=== PATIENT | male | born 1975 | race American Indian/Alaskan Native ===

== ENCOUNTER 2019-04-17 09:13 | Inpatient (IN) | payer MEDICAID ==
[2019-04-17 09:40] LABS: Basophils % (Auto) 0.3 % (0.0-1.8); Eosinophils % (Auto) 0.1 % (0.0-4.3); Hematocrit 42.2 % (35.5-45.6); Hemoglobin 14.2 gm/dl (11.8-15.2); Lymphocytes # (Auto) 0.7 K/mm3 (1.2-5.4); Lymphocytes % (Auto) 7.5 % (13.4-35.0); Mean Corpuscular HGB Conc 34 % (32-34); Mean Corpuscular Volume 88 fl (84-94); Monocytes # (Auto) 0.3 K/mm3 (0.0-0.8); Monocytes % (Auto) 3.3 % (0.0-7.3); Platelet Count 290 K/mm3 (140-440); Red Blood Count 4.82 M/mm3 (3.65-5.03); Red Cell Distribution Width 14.5 % (13.2-15.2)
[2019-04-17] MEDS ORDERED: ZOFRAN IV ONE (09:52)
[2019-04-17] MEDS ORDERED: NACL 0.9% 1000 ML 1,000 ML IV ONE ×2 (09:52→11:38)
[2019-04-17] MEDS ORDERED: MORPHINE IV ONE (09:52)
--- NOTE | 2019-04-17 09:53 | Emergency Department Report ---
ED Abdominal Pain HPI - General Chief Complaint: Abdominal Pain Stated Complaint: STOMACH PAIN Time Seen by Provider: 04/17/19 09:41 Source: patient, RN notes reviewed Mode of arrival: Ambulatory Limitations: No Limitations - History of Present Illness Initial Comments: This is a 43-year-old gentleman, not known to this provider previously. The patient does not recall the name of his primary care doctor. He states he has a history of psoriasis. He denies a history of abdominal surgeries. The patient presents to ER today with a complaint of nontraumatic supraumbilical and epigastric pain, which started last night. The pain is sharp and aching, diffuse, increases with palpation and decreases with rest. There is positive nausea, vomiting. There are no urinary symptoms. There is no testicular pain. No recent alcohol binge, excessive Tylenol use, or recreational mushroom consumption. Patient does report remote history of cold/URI symptoms approximately 10-14 days ago. MD Complaint: abdominal pain -: Gradual, hour(s) Location: diffuse, periumbilical Quality: cramping Consistency: constant Improves With: rest Worsens With: movement Associated Symptoms: nausea, vomiting, anorexia - Related Data Allergies Allergy/AdvReac Type Severity Reaction Status Date / Time No Known Allergies Allergy Verified 04/17/19 11:45 ED Review of Systems ROS: Stated complaint: STOMACH PAIN Other details as noted in HPI Constitutional: malaise. denies: fever Eyes: denies: eye discharge ENT: denies: epistaxis Respiratory: denies: cough Cardiovascular: denies: chest pain Gastrointestinal: abdominal pain, nausea, vomiting. denies: diarrhea, constipation, hematemesis, melena, hematochezia Genitourinary: denies: urgency, dysuria, testicular pain Musculoskeletal: denies: back pain Skin: rash (chronic psoriatic rash) Neurological: weakness Hematological/Lymphatic: denies: easy bleeding ED Past Medical Hx - Past Medical History Previous Medical History?: Yes Additional medical history: psoriasis - Surgical History Past Surgical History?: No - Social History Smoking Status: Never Smoker Substance Use Type: None ED Physical Exam - General Limitations: No Limitations General appearance: alert, anxious, in distress, obese - Head Head exam: Present: atraumatic, normocephalic - Eye Eye exam: Present: normal appearance, EOMI. Absent: nystagmus - ENT ENT exam: Present: normal exam, normal orophraynx, mucous membranes moist, normal external ear exam - Neck Neck exam: Present: normal inspection, full ROM. Absent: tenderness, meningismus - Respiratory Respiratory exam: Present: normal lung sounds bilaterally. Absent: respiratory distress - Cardiovascular Cardiovascular Exam: Present: regular rate, normal rhythm, normal heart sounds. Absent: bradycardia, tachycardia, irregular rhythm, systolic murmur, diastolic murmur, rubs, gallop - GI/Abdominal GI/Abdominal exam: Present: soft, tenderness, guarding (voluntary guarding). Absent: distended, rebound, rigid, pulsatile mass - Rectal Rectal exam: Present: deferred - exam: Present: normal inspection, other (there is no testicular tenderness. There is normal testicular lie bilaterally. There is normal cremasteric reflex bilaterally.). Absent: testicular tenderness, scrotal swelling External exam: Present: normal external exam, other (chaperoned by nurse Emma Kenney). Absent: erythema, swelling, lesions, lacerations, ecchymosis - Extremities Exam Extremities exam: Present: normal inspection, full ROM, other (2+ pulses noted in the bilateral upper, lower extremities. Compartments soft. No long bony tenderness. The pelvis is stable.). Absent: pedal edema, joint swelling, calf tenderness - Back Exam Back exam: Present: normal inspection, full ROM. Absent: tenderness, CVA tenderness (R), CVA tenderness (L), paraspinal tenderness, vertebral tenderness - Neurological Exam Neurological exam: Present: alert, normal gait, other (Extraocular movements intact. Tongue midline. No facial droop. Facial sensation intact to light t ouch in the V1, V2, V3 distribution bilaterally. 5 and 5 strength in 4 extremities.. Sensation is intact to light touch in 4 extremities.). Absent: motor sensory deficit - Psychiatric Psychiatric exam: Present: anxious - Skin Skin exam: Present: warm, other (multiple psoriatic lesions noted) ED Course Vital Signs 04/17/19 04/17/19 04/17/19 09:16 10:01 10:31 Temperature 97.6 F Pulse Rate 82 79 84 Respiratory 20 16 26 H Rate Blood Pressure 149/92 140/98 140/79 O2 Sat by Pulse 99 97 93 Oximetry 04/17/19 04/17/19 11:01 11:31 Temperature Pulse Rate 85 82 Respiratory 20 25 H Rate Blood Pressure 140/98 145/91 O2 Sat by Pulse 92 95 Oximetry - Reevaluation(s) Reevaluation #1: 04/17/19 10:38 Differential diagnosis, including not limited to: Pancreatitis, renal colic, cholecystitis, appendicitis Assessment and plan: 43-year-old gentleman, appears uncomfortable, with diffuse abdominal tenderness, laboratory studies show elevated lipase and transaminitis, suspect pancreatitis. CT scan has been performed, to me, it appears that the pancreas is inflamed. Right upper quadrant ultrasound ordered. Formal CT scan interpretation pending. I discussed these findings with patient, we have advised admission to the hospital for further management. Patient denies consumption of alcohol, and acetaminophen and recreational mushrooms. He does endorse recent cold/URI, suspect viral pancreatitis at this time if CT scan does not demonstrate alternative pathology. Reevaluation #2: 04/17/19 11:26 Dr Stoddard accepts to the medical service Reevaluation #3: 04/17/19 11:39 d/w gastroenterology on-call Dr Valle. We agree that patient does not require antibiotic therapy at this time. She recommends MRCP, which I will defer to the inpatient team to order, fluids, supportive care, and trending labs. Her group will follow in consultation. ED Medical Decision Making - Lab Data Result diagrams: 04/17/19 09:21 04/17/19 09:21 Vital Signs 04/17/19 04/17/19 09:16 10:01 Temperature 97.6 F Pulse Rate 82 79 Respiratory 20 16 Rate Blood Pressure 149/92 140/98 O2 Sat by Pulse 99 97 Oximetry Lab Results 04/17/19 04/17/19 04/17/19 Range/Units 09:19 09:21 09:21 WBC 9.7 (4.5-11.0) K/mm3 RBC 4.82 (3.65-5.03) M/mm3 Hgb 14.2 (11.8-15.2) gm/dl Hct 42.2 (35.5-45.6) % MCV 88 (84-94) fl MCH 30 (28-32) pg MCHC 34 (32-34) % RDW 14.5 (13.2-15.2) % Plt Count 290 (140-440) K/mm3 Lymph % (Auto) 7.5 L (13.4-35.0) % [place] % (Auto) 3.3 (0.0-7.3) % Eos % (Auto) 0.1 (0.0-4.3) % Baso % (Auto) 0.3 (0.0-1.8) % Lymph # 0.7 L (1.2-5.4) K/mm3 [place] # 0.3 (0.0-0.8) K/mm3 Eos # 0.0 (0.0-0.4) K/mm3 Baso # 0.0 (0.0-0.1) K/mm3 Seg Neutrophils % 88.8 H (40.0-70.0) % Seg Neutrophils # 8.6 H (1.8-7.7) K/mm3 Sodium 138 (137-145) mmol/L Potassium 4.0 (3.6-5.0) mmol/L Chloride 99.7 (98-107) mmol/L Carbon Dioxide 26 (22-30) mmol/L Anion Gap 16 mmol/L BUN 10 (9-20) mg/dL Creatinine 1.2 (0.8-1.5) mg/dL Estimated GFR > 60 ml/min BUN/Creatinine Ratio 8 % Glucose 200 H (75-100) mg/dL Calcium 9.2 (8.4-10.2) mg/dL Magnesium 2.00 (1.7-2.3) mg/dL Total Bilirubin 1.70 H (0.1-1.2) mg/dL AST 278 H (5-40) units/L ALT 321 H (7-56) units/L Alkaline Phosphatase 85 (35-129) units/L Total Creatine Kinase 856 H (55-170) units/L Total Protein 7.7 (6.3-8.2) g/dL Albumin 4.3 (3.9-5) g/dL Albumin/Globulin Ratio 1.3 % Lipase 672 H (13-60) units/L Urine Color (Yellow) Urine Turbidity (Clear) Urine pH (5.0-7.0) Ur Specific [place] (1.003-1.030) Urine Protein (Negative) mg/dL Urine Glucose (UA) (Negative) mg/dL Urine Ketones (Negative) mg/dL Urine Blood (Negative) Urine Nitrite (Negative) Urine Bilirubin (Negative) Urine Urobilinogen (<2.0) mg/dL Ur Leukocyte Esterase (Negative) Urine WBC (Auto) (0.0-6.0) /HPF Urine RBC (Auto) (0.0-6.0) /HPF U Epithel Cells (Auto) (0-13.0) /HPF Urine Mucus /HPF Urine Opiates Screen Urine Methadone Screen Ur Barbiturates Screen Ur Phencyclidine Scrn Ur Amphetamines Screen U Benzodiazepines Scrn Urine Cocaine Screen U Marijuana (THC) Screen 04/17/19 04/17/19 Range/Units 10:04 10:04 WBC (4.5-11.0) K/mm3 RBC (3.65-5.03) M/mm3 Hgb (11.8-15.2) gm/dl Hct (35.5-45.6) % MCV (84-94) fl MCH (28-32) pg MCHC (32-34) % RDW (13.2-15.2) % Plt Count (140-440) K/mm3 Lymph % (Auto) (13.4-35.0) % [place] % (Auto) (0.0-7.3) % Eos % (Auto) (0.0-4.3) % Baso % (Auto) (0.0-1.8) % Lymph # (1.2-5.4) K/mm3 [place] # (0.0-0.8) K/mm3 Eos # (0.0-0.4) K/mm3 Baso # (0.0-0.1) K/mm3 Seg Neutrophils % (40.0-70.0) % Seg Neutrophils # (1.8-7.7) K/mm3 Sodium (137-145) mmol/L Potassium (3.6-5.0) mmol/L Chloride (98-107) mmol/L Carbon Dioxide (22-30) mmol/L Anion Gap mmol/L BUN (9-20) mg/dL Creatinine (0.8-1.5) mg/dL Estimated GFR ml/min BUN/Creatinine Ratio % Glucose (75-100) mg/dL Calcium (8.4-10.2) mg/dL Magnesium (1.7-2.3) mg/dL Total Bilirubin (0.1-1.2) mg/dL AST (5-40) units/L ALT (7-56) units/L Alkaline Phosphatase (35-129) units/L Total Creatine Kinase (55-170) units/L Total Protein (6.3-8.2) g/dL Albumin (3.9-5) g/dL Albumin/Globulin Ratio % Lipase (13-60) units/L Urine Color [place] (Yellow) Urine Turbidity Clear (Clear) Urine pH 7.0 (5.0-7.0) Ur Specific [place] 1.022 (1.003-1.030) Urine Protein <15 mg/dl (Negative) mg/dL Urine Glucose (UA) >=500 (Negative) mg/dL Urine Ketones Neg (Negative) mg/dL Urine Blood Neg (Negative) Urine Nitrite Neg (Negative) Urine Bilirubin Neg (Negative) Urine Urobilinogen 4.0 (<2.0) mg/dL Ur Leukocyte Esterase Neg (Negative) Urine WBC (Auto) < 1.0 (0.0-6.0) /HPF Urine RBC (Auto) 3.0 (0.0-6.0) /HPF U Epithel Cells (Auto) < 1.0 (0-13.0) /HPF Urine Mucus Few /HPF Urine Opiates Screen Presumptive negative Urine Methadone Screen Presumptive negative Ur Barbiturates Screen Presumptive negative Ur Phencyclidine Scrn Presumptive negative Ur Amphetamines Screen Presumptive negative U Benzodiazepines Scrn Presumptive negative Urine Cocaine Screen Presumptive negative U Marijuana (THC) Screen Presumptive negative - EKG Data 04/17/19 10:39 there is no prior EKG available for comparison. This is a normal sinus rhythm, 85 bpm, left axis deviation, left anterior fascicular block, high left ventricular voltage, incomplete right bundle branch block, nonspecific atrial findings, not consistent with ST elevation myocardial infarction. - Radiology Data Radiology results: pending, report reviewed, image reviewed Print Report Referring Physician: OFELIA CHIANG Patient Name: SAMMY DOMINGUEZ Date of : 1975 Sex: Male Report Date: 2019-04-17 Report Status: Finalized Findings [facility] [address] [place] [address] Cat Scan Report Signed Patient: SAMMY DOMINGUEZ MR#: [id number] 1 : 1975 Acct:[id number] Age/Sex: 43 / M ADM Date: 04/17/19 Loc: ED Attending Dr: Ordering Physician: OFELIA CHIANG MD Date of Service: 04/17/19 Procedure(s): CT abdomen pelvis wo/w con Accession Number(s): [id number] cc: OFELIA CHIANG MD CT abdomen pelvis wo/w con INDICATION / CLINICAL INFORMATION: abd pain n/v. TECHNIQUE: All CT scans at this location are performed using CT dose reduction for ALARA by means of automated exposure control. COMPARISON: None available. FINDINGS: Precontrast images do not demonstrate evidence for urinary tract stones. No significant atherosclerotic changes present. Following the administration of intravenous contrast, minimal fluid is seen in the abdomen. Marked diffuse peripancreatic inflammation is present. Diffuse fatty infiltration is present in the liver without focal abnormality. The spleen, k idneys, adrenal glands and great vessels are normal. A small umbilical hernia is present containing only fat In the pelvis, no free fluid is seen. No enlarged lymph nodes are identified. The bladder and the appendix are normal. No significant skeletal abnormality is seen. IMPRESSION: 1. Marked peripancreatic inflammation consistent with acute pancreatitis. 2. Diffuse fatty infiltration in the liver without focal abnormality 3. Small umbilical hernia containing only fat Signer Name: Rustam Wright MD FACR Signed: 04/17/2019 10:53 AM Workstation Name: [id number] Transcribed By: MS Dictated By: Rustam Wright MD Electronically Authenticated By: Rustam Wright MD Signed Date/Time: 1053 [facility] [address] [place] [address] Ultrasound Report Signed Patient: SAMMY DOMINGUEZ MR#: [id number] 1 : 1975 Acct:[id number] Age/Sex: 43 / M ADM Date: 04/17/19 Loc: ED Attending Dr: Ordering Physician: OFELIA CHIANG MD Date of Service: 04/17/19 Procedure(s): US abdomen limited Accession Number(s): [id number] cc: OFELIA CHIANG MD US ABDOMEN LIMITED INDICATION / CLINICAL INFORMATION: abd pain pancreatitis transaminitis. COMPARISON: None available. FINDINGS: Multiple gallstones are seen in the gallbladder. The gallbladder wall is not thickened. Common bile duct is normal measuring 2 mm. Visualized portions of the right kidney and aorta are normal. The pancreas was not well visualized. IMPRESSION: Cholelithiasis without gallbladder wall thickening. No definite common bile duct stone is seen on this exam. The pancreas was not well visualized. Signer Name: Rustam Wright MD FACR Signed: 04/17/2019 11:45 AM Workstation Name: [id number] Transcribed By: MS Dictated By: Rustam Wright MD Electronically Authenticated By: Rustam Wright MD Signed Date/Time: 04/17/19 1145 Critical care attestation.: If time is entered above; I have spent that time in minutes in the direct care of this critically ill patient, excluding procedure time. ED Disposition Clinical Impression: Pancreatitis, Transaminitis Disposition: [id number] OP ADMIT IP TO THIS HOSP Is pt being admited?: Yes Condition: Good
[2019-04-17 09:54] LABS: Alanine Aminotransferase 321 units/L (7-56); Albumin 4.3 g/dL (3.9-5); BUN/Creatinine Ratio 8; Blood Urea Nitrogen 10 mg/dL (9-20); Calcium 9.2 mg/dL (8.4-10.2); Hemolysis Index 2
[2019-04-17 10:21] LABS: Bilirubin,Urine NEG (Negative); Blood,Urine NEG (Negative); Color,Urine Amber (Yellow); Mucus,Urine FEW /HPF; Protein,Urine <15 mg/dL mg/dL (Negative)
[2019-04-17 10:24] LABS: WBC,Urine < 1.0 /HPF (0.0-6.0)
[2019-04-17] MEDS ORDERED: DILAUDID IV ONE (10:28)
[2019-04-17 10:37] LABS: Amphetamine Screen,Urine PRESUMPTIVE NEGATIVE; Benzodiazepines Screen,Urine PRESUMPTIVE NEGATIVE; Cannabinoid Screen,Urine PRESUMPTIVE NEGATIVE; Cocaine Screen,Urine PRESUMPTIVE NEGATIVE; Methadone Screen,Urine PRESUMPTIVE NEGATIVE; Opiate Screen,Urine PRESUMPTIVE NEGATIVE
--- NOTE | 2019-04-17 10:57 | Cat Scan Report ---
CT abdomen pelvis wo/w con INDICATION / CLINICAL INFORMATION: abd pain n/v. TECHNIQUE: All CT scans at this location are performed using CT dose reduction for ALARA by means of automated e xposure control. COMPARISON: None available. FINDINGS: Precontrast images do not demonstrate evidence for urinary tract stones. No significant atherosclerot ic changes present. Following the administration of intravenous contrast, minimal fluid is seen in the abdomen. Marked di ffuse peripancreatic inflammation is present. Diffuse fatty infiltration is present in the liver with out focal abnormality. The spleen, kidneys, adrenal glands and great vessels are normal. A small umbi lical hernia is present containing only fat In the pelvis, no free fluid is seen. No enlarged lymph nodes are identified. The bladder and the mira endix are normal. No significant skeletal abnormality is seen. IMPRESSION: 1. Marked peripancreatic inflammation consistent with acute pancreatitis. 2. Diffuse fatty infiltration in the liver without focal abnormality 3. Small umbilical hernia containing only fat Signer Name: Rustam Wright MD FACR Signed: 04/17/2019 10:53 AM Workstation Name: [id number]
[2019-04-17] MEDS ORDERED: PROVENTIL IH PRN (11:41)
[2019-04-17] MEDS ORDERED: ZOFRAN IV PRN (11:41)
[2019-04-17] MEDS ORDERED: TYLENOL PO PRN (11:41)
[2019-04-17] MEDS ORDERED: SODIUM CHLORIDE FLUSH SYRINGE 10 ML IV PRN (11:41)
--- NOTE | 2019-04-17 11:43 | History and Physical Report ---
History of Present Illness Chief complaint: My stomach is killing me doc History of present illness: 43 YO Male with Obesity, Psoriasis currently on Enbrel presents to ED for evaluation. Pt states that he has experienced pain in his abdomen over the past 2 days with progressively worsening symptoms over the past 12 hours. Pt states that his abdominal pain is 10/10, sharp, diffuse, nonradiating, associated with nausea. Pt acknowledges multiple episodes of vomiting, and inability to tolerate fluids or solids by mouth. Pt transported to [facility] via private vehicle. Pt seen and evaluated in ED and found to have Acute Pancreatitis, SIRS, Elevated Liver function tests. Pt admitted to medical floor, and treated with IVF resuscitation therapy and anti emetic therapy as well as bowel rest. GI consulted in ED. Pt denies fever, chills, CP, Palpitations, Trauma, BRBPR, Productive cough, ingestion of food/water from new or different sources. No prior admission for review. No medication listed at time of admission for reconciliation. Past History Past Medical History: other (Obesity, Psoriasis) Past Surgical History: No surgical history, Other (reviewed) Social history: single. denies: smoking, alcohol abuse, prescription drug abuse Family history: no significant family history (reviewed) Medications and Allergies Allergies Allergy/AdvReac Type Severity Reaction Status Date / Time No Known Allergies Allergy Verified 04/17/19 11:45 Active Meds: Active Medications Sodium Chloride (Nacl 0.9% 1000 Ml) 1,000 mls @ 999 mls/hr IV BOLUS ONE Stop: 04/17/19 12:38 Review of Systems Constitutional: no weight loss, no weight gain, no fever, no chills, no sweats Ears, nose, mouth and throat: no ear pain, no ear discharge, no tinnitis, no decreased hearing, no nose pain, no nasal congestion Cardiovascular: no chest pain, no orthopnea, no palpitations, no edema, no syncope Respiratory: no cough, no cough with sputum, no excessive sputum, no hemoptysis, no shortness of breath Gastrointestinal: abdominal pain, nausea, vomiting, loss of appetite, no diarrhea, no constipation, no hematemesis, no coffee ground emesis, no BRBPR Genitourinary Male: no dysuria, no hematuria, no flank pain, no discharge, no urinary frequency, no urinary hesitancy Rectal: no pain, no incontinence, no bleeding Musculoskeletal: no neck stiffness, no neck pain, no arm numbness/tingling, no shooting leg pain, no leg numbness/tingling Integumentary: no rash, no pruritis, no redness, no sores, no wounds, no jaundice Neurological: no head injury, no transient paralysis, no paralysis, no weakness, no numbness, no tingling Psychiatric: no anxiety, no memory loss, no insomnia, no suicidal ideation Endocrine: no cold intolerance, no heat intolerance, no polyphagia, no excessive thirst, no polydipsia, no polyuria, no nocturia Hematologic/Lymphatic: no easy bruising, no easy bleeding, no lymphadenopathy, no lymphedema Allergic/Immunologic: no urticaria, no allergic rhinitis, no persistent infections, no anaphylaxis, no angioedema Exam - Constitutional Vitals: Temp Pulse Resp BP Pulse Ox 97.6 F 85 20 140/98 92 04/17/19 09:16 04/17/19 11:01 04/17/19 11:01 04/17/19 11:01 04/17/19 11:01 General appearance: Present: mild distress, obese - EENT Eyes: Present: PERRL, miosis ENT: hearing intact, clear oral mucosa - Neck Neck: Present: supple, normal ROM - Respiratory Respiratory effort: normal Respiratory: bilateral: CTA - Cardiovascular Heart Sounds: Present: S1 & S2. Absent: rub, click - Extremities Extremities: pulses symmetrical, No edema Peripheral Pulses: within normal limits - Abdominal General gastrointestinal: Present: soft, tender, non-distended, normal bowel sounds, other (Negative Das-Matias sign, Negative [place] Sign.). Absent: hepatomegaly, splenomegaly, mass, hernia Localized gastrointestinal: tender: diffuse Male genitourinary: Present: normal - Integumentary Integumentary: Present: clear, warm, dry - Musculoskeletal Musculoskeletal: gait normal, strength equal bilaterally - Psychiatric Psychiatric: appropriate mood/affect, intact judgment & insight - Neurologic Neurologic: CNII-XII intact, moves all extremities Results - Labs CBC & Chem 7: 04/17/19 09:21 04/17/19 09:21 Labs: Abnormal lab results 04/17/19 04/17/19 04/17/19 Range/Units 09:19 09:21 09:21 Lymph % (Auto) 7.5 L (13.4-35.0) % Lymph # 0.7 L (1.2-5.4) K/mm3 Seg Neutrophils % 88.8 H (40.0-70.0) % Seg Neutrophils # 8.6 H (1.8-7.7) K/mm3 Glucose 200 H (75-100) mg/dL Total Bilirubin 1.70 H (0.1-1.2) mg/dL AST 278 H (5-40) units/L ALT 321 H (7-56) units/L Total Creatine Kinase 856 H (55-170) units/L Lipase 672 H (13-60) units/L Assessment and Plan - Patient Problems (1) Acute pancreatitis Current Visit: Yes Status: Acute Plan to address problem: Admit to Med/surg floor, IVF resuscitation therapy, bowel rest, pain control, CT Abdomen/pelvis, Ultrasound Abdomen, [place] Score: 2 at admission, serial abdominal exam, LDH, Lipid panel, lactic acid level, Lipase in AM. (2) SIRS (systemic inflammatory response syndrome) Current Visit: Yes Status: Acute Plan to address problem: IVF resuscitation therapy, supportive care, repeat bmp in am. (3) Intractable nausea and vomiting Current Visit: Yes Status: Acute Qualifiers: Vomiting type: unspecified Qualified Code(s): R11.2 - Nausea with vomiting, unspecified Plan to address problem: bowel rest, anti emetic therapy, IVF resuscitation therapy (4) Volume depletion Current Visit: Yes Status: Acute Plan to address problem: IVF resuscitation therapy, monitor uop q shift, (5) Psoriasis Current Visit: Yes Status: Acute Plan to address problem: Hold Enbrel for now. Unclear if drug induced pancreatitis. supportive care, topical steroid therapy. (6) Obesity (BMI 30.0-34.9) Current Visit: Yes Status: Acute Plan to address problem: balanced diet, increased physical activity at discharge. (7) DVT prophylaxis Current Visit: Yes Status: Acute Plan to address problem: SCD to BLE while in bed, Pt is ambulatory.
--- NOTE | 2019-04-17 11:49 | Ultrasound Report ---
US ABDOMEN LIMITED INDICATION / CLINICAL INFORMATION: abd pain pancreatitis transaminitis. COMPARISON: None available. FINDINGS: Multiple gallstones are seen in the gallbladder. The gallbladder wall is not thickened. Common bile d uct is normal measuring 2 mm. Visualized portions of the right kidney and aorta are normal. The pancr eas was not well visualized. IMPRESSION: Cholelithiasis without gallbladder wall thickening. No definite common bile duct stone is seen on thi s exam. The pancreas was not well visualized. Signer Name: Rustam Wright MD FACR Signed: 04/17/2019 11:45 AM Workstation Name: [id number]
[2019-04-17] MEDS: DILAUDID IV PRN ×5 (11:50→23:38)
[2019-04-17] MEDS ORDERED: HYTONE CR TP PRN (12:44)
[2019-04-17 14:29] LABS: Chol/HDL Ratio 2.55 %
--- NOTE | 2019-04-17 19:22 | Gastroenterology Consultation ---
History of Present Illness - Reason for Consult Consult date: 04/17/19 pancreatitis Requesting physician: OFELIA CHIANG - History of Present Illness This is 43 yo male with pmh of psoriasis (skin involvement) on Enbrel admitted for 2 day h/o epigastric pain and nausea/vomiting found to have pancreatitis. Patient reports epigastric pain severe sharp in nature for the past 2 days along with nausea and NBNB emesis. No radiation of the pain. No blood in the stool or melena. No prior h/o pancreatitis. Change in medication. No alcohol use. Lipase elevated in 600s. CT showing signs of gallstone and pancreatitis. Medication list reviewed Past History Past Medical History: other (Obesity, Psoriasis) Past Surgical History: No surgical history, Other (reviewed) Social history: single. denies: smoking, alcohol abuse, prescription drug abuse Family history: no significant family history (reviewed) Medications and Allergies Allergies Allergy/AdvReac Type Severity Reaction Status Date / Time No Known Allergies Allergy Verified 04/17/19 11:45 Home Medications Medication Instructions Recorded Confirmed Last Taken Type No Known Home Medications [No 04/17/19 04/17/19 Unknown History Reported Home Medications] Active Meds: Active Medications Acetaminophen (Tylenol) 650 mg PO Q4H PRN PRN Reason: Pain MILD(1-3)/Fever >100.5/QUNA Albuterol (Proventil) 2.5 mg IH Q4HRT PRN PRN Reason: Shortness Of Breath Hydrocortisone Acetate (Hytone Cr) 1 applic TP Q12H PRN PRN Reason: Skin Irritation Hydromorphone HCl (Dilaudid) 0.25 mg IV Q3H PRN PRN Reason: Pain, Moderate (4-6) Last Admin: 04/17/19 17:01 Dose: 0.25 mg Documented by: Sodium Chloride (Nacl 0.9% 1000 Ml) 1,000 mls @ 150 mls/hr IV DIRECT PAUL Ondansetron HCl (Zofran) 4 mg IV Q8H PRN PRN Reason: Nausea And Vomiting Sodium Chloride (Sodium Chloride Flush Syringe 10 Ml) 10 ml IV BID PAUL Sodium Chloride (Sodium Chloride Flush Syringe 10 Ml) 10 ml IV PRN PRN PRN Reason: LINE FLUSH Review of Systems - Review of Systems All systems: negative Constitutional: no weight loss, no weight gain Cardiovascular: no chest pain Respiratory: no cough Gastrointestinal: abdominal pain, nausea, vomiting, no BRBPR, no melena Integumentary: rash Neurological: no sensory deficit Exam - Constitutional Vital Signs: Temp Pulse Resp BP Pulse Ox 98.0 F 89 18 147/92 99 04/17/19 17:32 04/17/19 17:32 04/17/19 17:32 04/17/19 17:32 04/17/19 17:32 General appearance: no acute distress - EENT Eyes: EOM intact ENT: hearing intact - Neck Neck: supple - Respiratory Respiratory effort: normal Respiratory: bilateral: CTA - Cardiovascular Rhythm: regular Heart Sounds: Present: S1 & S2 - Gastrointestinal General gastrointestinal: Present: soft, tender, non-distended, normal bowel sounds - Integumentary Integumentary: Present: rash - Neurologic Neurological: alert and oriented x3 - Labs CBC & Chem 7: 04/17/19 09:21 04/17/19 09:21 Lab Results: Laboratory Results - last 24 hr 04/17/19 04/17/19 04/17/19 09:19 09:21 09:21 WBC 9.7 RBC 4.82 Hgb 14.2 Hct 42.2 MCV 88 MCH 30 MCHC 34 RDW 14.5 Plt Count 290 Lymph % (Auto) 7.5 L [place] % (Auto) 3.3 Eos % (Auto) 0.1 Baso % (Auto) 0.3 Lymph # 0.7 L [place] # 0.3 Eos # 0.0 Baso # 0.0 Seg Neutrophils % 88.8 H Seg Neutrophils # 8.6 H Sodium 138 Potassium 4.0 Chloride 99.7 Carbon Dioxide 26 Anion Gap 16 BUN 10 Creatinine 1.2 Estimated GFR > 60 BUN/Creatinine Ratio 8 Glucose 200 H Lactic Acid Calcium 9.2 Magnesium 2.00 Total Bilirubin 1.70 H AST 278 H ALT 321 H Alkaline Phosphatase 85 Lactate Dehydrogenase Total Creatine Kinase 856 H Total Protein 7.7 Albumin 4.3 Albumin/Globulin Ratio 1.3 Triglycerides Cholesterol LDL Cholesterol Direct HDL Cholesterol Cholesterol/HDL Ratio Lipase 672 H Urine Color Urine Turbidity Urine pH Ur Specific [place] Urine Protein Urine Glucose (UA) Urine Ketones Urine Blood Urine Nitrite Urine Bilirubin Urine Urobilinogen Ur Leukocyte Esterase Urine WBC (Auto) Urine RBC (Auto) U Epithel Cells (Auto) Urine Mucus Urine Opiates Screen Urine Methadone Screen Ur Barbiturates Screen Ur Phencyclidine Scrn Ur Amphetamines Screen U Benzodiazepines Scrn Urine Cocaine Screen U Marijuana (THC) Screen Drugs of Abuse Note 04/17/19 04/17/19 04/17/19 10:04 10:04 12:47 WBC RBC Hgb Hct MCV MCH MCHC RDW Plt Count Lymph % (Auto) [place] % (Auto) Eos % (Auto) Baso % (Auto) Lymph # [place] # Eos # Baso # Seg Neutrophils % Seg Neutrophils # Sodium Potassium Chloride Carbon Dioxide Anion Gap BUN Creatinine Estimated GFR BUN/Creatinine Ratio Glucose Lactic Acid Calcium Magnesium Total Bilirubin AST ALT Alkaline Phosphatase Lactate Dehydrogenase 480 H Total Creatine Kinase Total Protein Albumin Albumin/Globulin Ratio Triglycerides Cholesterol LDL Cholesterol Direct HDL Cholesterol Cholesterol/HDL Ratio Lipase Urine Color [place] Urine Turbidity Clear Urine pH 7.0 Ur Specific [place] 1.022 Urine Protein <15 mg/dl Urine Glucose (UA) >=500 Urine Ketones Neg Urine Blood Neg Urine Nitrite Neg Urine Bilirubin Neg Urine Urobilinogen 4.0 Ur Leukocyte Esterase Neg Urine WBC (Auto) < 1.0 Urine RBC (Auto) 3.0 U Epithel Cells (Auto) < 1.0 Urine Mucus Few Urine Opiates Screen Presumptive negative Urine Methadone Screen Presumptive negative Ur Barbiturates Screen Presumptive negative Ur Phencyclidine Scrn Presumptive negative Ur Amphetamines Screen Presumptive negative U Benzodiazepines Scrn Presumptive negative Urine Cocaine Screen Presumptive negative U Marijuana (THC) Screen Presumptive negative Drugs of Abuse Note Disclamer 04/17/19 04/17/19 12:47 12:47 WBC RBC Hgb Hct MCV MCH MCHC RDW Plt Count Lymph % (Auto) [place] % (Auto) Eos % (Auto) Baso % (Auto) Lymph # [place] # Eos # Baso # Seg Neutrophils % Seg Neutrophils # Sodium Potassium Chloride Carbon Dioxide Anion Gap BUN Creatinine Estimated GFR BUN/Creatinine Ratio Glucose Lactic Acid 2.70 H* Calcium Magnesium Total Bilirubin AST ALT Alkaline Phosphatase Lactate Dehydrogenase Total Creatine Kinase Total Protein Albumin Albumin/Globulin Ratio Triglycerides 51 Cholesterol 151 LDL Cholesterol Direct 95 HDL Cholesterol 59 Cholesterol/HDL Ratio 2.55 Lipase Urine Color Urine Turbidity Urine pH Ur Specific [place] Urine Protein Urine Glucose (UA) Urine Ketones Urine Blood Urine Nitrite Urine Bilirubin Urine Urobilinogen Ur Leukocyte Esterase Urine WBC (Auto) Urine RBC (Auto) U Epithel Cells (Auto) Urine Mucus Urine Opiates Screen Urine Methadone Screen Ur Barbiturates Screen Ur Phencyclidine Scrn Ur Amphetamines Screen U Benzodiazepines Scrn Urine Cocaine Screen U Marijuana (THC) Screen Drugs of Abuse Note Assessment and Plan # Acute pancreatitis - likely 2/2 gallstone pancreatitis - US and CT showing gallstones in the gallbladder without clear sign of CBD stone or dilation. - mild elevation of bilirubin. - others on ddx for etiology including autoimmune pancreatitis vs drug induced although Enbrel not classic medication known for pancreatitis complications. Rec: - NPO - aggressive IVF - pain control. - monitor CMP - check MRCP to rule out CBD stone. - recommend surgery consult. - Patient Problems (1) Acute pancreatitis Current Visit: Yes Status: Acute
[2019-04-17] MEDS: NACL 0.9% 1000 ML 1,000 ML IV SCH (20:08)
[2019-04-17] MEDS: SODIUM CHLORIDE FLUSH SYRINGE 10 ML IV SCH (21:34)
[2019-04-18] MEDS: NACL 0.9% 1000 ML 1,000 ML IV SCH (01:25)
[2019-04-18] MEDS: DILAUDID IV PRN ×6 (02:44→19:08)
[2019-04-18 04:30] LABS: Basophils % (Auto) 0.3 % (0.0-1.8); Eosinophils % (Auto) 0.1 % (0.0-4.3); Hematocrit 42.6 % (35.5-45.6); Hemoglobin 14.1 gm/dl (11.8-15.2); Lymphocytes # (Auto) 0.9 K/mm3 (1.2-5.4); Lymphocytes % (Auto) 5.9 % (13.4-35.0); Mean Corpuscular HGB Conc 33 % (32-34); Mean Corpuscular Volume 88 fl (84-94); Monocytes # (Auto) 1.6 K/mm3 (0.0-0.8); Monocytes % (Auto) 10.3 % (0.0-7.3); Platelet Count 245 K/mm3 (140-440); Red Blood Count 4.87 M/mm3 (3.65-5.03); Red Cell Distribution Width 14.5 % (13.2-15.2)
[2019-04-18 04:50] LABS: Alanine Aminotransferase 203 units/L (7-56); Albumin 3.6 g/dL (3.9-5); BUN/Creatinine Ratio 9; Blood Urea Nitrogen 9 mg/dL (9-20); Calcium 8.2 mg/dL (8.4-10.2); Hemolysis Index 4
[2019-04-18] MEDS ORDERED: D5NS 1,000 ML IV SCH (09:00)
--- NOTE | 2019-04-18 11:59 | Progress Note ---
Assessment and Plan / Acute gallstone pancreatitis cont IVF resuscitation therapy, pain control, Vinod Score: 2 at admission, serial abdominal exam, No plan for MRCP per GI, GS consulted plan for laparoscopic cholecystectomy tomorrow / SIRS (systemic inflammatory response syndrome) IVF resuscitation therapy, iv abx, supportive care, repeat bmp in am. / Intractable nausea and vomiting improved, cont anti emetic therapy, IVF resuscitation therapy / Volume depletion: IVF resuscitation therapy, monitor uop q shift, / Psoriasis Hold Enbrel for now in the light of pancreatitis. supportive care, topical steroid therapy. / Obesity (BMI 30.0-34.9) balanced diet and increased physical activity recommendation at discharge as appropriate. / DVT prophylaxis SCD to BLE while in bed, Pt is ambulatory. Subjective Date of service: 04/18/19 Interval history: Patient seen and examined abdominal pain improved wants to eat plan for surgery tomorrow Objective - Exam Narrative Exam: General appearance: Present:no distress, obese - EENT Eyes: Present: PERRL, miosis ENT: hearing intact, clear oral mucosa - Neck Neck: Present: supple, normal ROM - Respiratory Respiratory effort: normal Respiratory: bilateral: CTA - Cardiovascular Heart Sounds: Present: S1 & S2. Absent: rub, click - Extremities Extremities: pulses symmetrical, No edema Peripheral Pulses: within normal limits - Abdominal General gastrointestinal: Present: soft, mild epigastric tender, non-distended, normal bowel sounds, Absent: hepatomegaly, splenomegaly, mass, hernia - Integumentary Integumentary: Present: clear, warm, dry scaly patched all over body - Musculoskeletal Musculoskeletal: gait normal, strength equal bilaterally - Psychiatric Psychiatric: appropriate mood/affect, intact judgment & insight - Neurologic Neurologic: CNII-XII intact, moves all extremities - Constitutional Vitals: Vital Signs - 12hr 04/18/19 04/18/19 04/18/19 00:08 02:44 03:14 Temperature Pulse Rate Respiratory 18 19 17 Rate Blood Pressure O2 Sat by Pulse Oximetry 04/18/19 04/18/19 04/18/19 05:04 05:53 06:23 Temperature 98.7 F Pulse Rate 100 H Respiratory 20 19 18 Rate Blood Pressure 144/96 O2 Sat by Pulse 97 Oximetry - Labs CBC & Chem 7: 04/19/19 07:18 04/19/19 07:18 Labs: Abnormal lab results 0804/17/19 04/18/19 Range/Units 12:47 12:47 04:06 WBC 15.9 H (4.5-11.0) K/mm3 Lymph % (Auto) 5.9 L (13.4-35.0) % [place] % (Auto) 10.3 H (0.0-7.3) % Lymph # 0.9 L (1.2-5.4) K/mm3 [place] # 1.6 H (0.0-0.8) K/mm3 Seg Neutrophils % 83.4 H (40.0-70.0) % Seg Neutrophils # 13.3 H (1.8-7.7) K/mm3 Glucose (75-100) mg/dL Lactic Acid 2.70 H* (0.7-2.0) mmol/L Calcium (8.4-10.2) mg/dL AST (5-40) units/L ALT (7-56) units/L Lactate Dehydrogenase 480 H (91-180) units/L Albumin (3.9-5) g/dL Lipase (13-60) units/L 04/18/19 04/18/19 Range/Units 04:06 04:06 WBC (4.5-11.0) K/mm3 Lymph % (Auto) (13.4-35.0) % [place] % (Auto) (0.0-7.3) % Lymph # (1.2-5.4) K/mm3 [place] # (0.0-0.8) K/mm3 Seg Neutrophils % (40.0-70.0) % Seg Neutrophils # (1.8-7.7) K/mm3 Glucose 138 H (75-100) mg/dL Lactic Acid (0.7-2.0) mmol/L Calcium 8.2 L (8.4-10.2) mg/dL AST 60 H (5-40) units/L ALT 203 H (7-56) units/L Lactate Dehydrogenase (91-180) units/L Albumin 3.6 L (3.9-5) g/dL Lipase 255 H (13-60) units/L
[2019-04-18] MEDS: SODIUM CHLORIDE FLUSH SYRINGE 10 ML IV SCH ×2 (12:49→21:49)
--- NOTE | 2019-04-18 14:30 | Gastroenterology Progress Note ---
Assessment and Plan # Acute pancreatitis - likely 2/2 gallstone pancreatitis - US and CT showing gallstones in the gallbladder without clear sign of CBD stone or dilation. - mild elevation of bilirubin and AST/ALT all trending down today. - others on ddx for etiology including autoimmune pancreatitis vs drug induced although Enbrel not classic medication known for pancreatitis complications. Rec: - can start on clear liquid diet. - aggressive IVF. - pain control. Will need PO pain medication options to wean down from IV diluadid. - monitor CMP - will hold off MRCP given liver enzymes trending down. - consulted general surgery with Dr. Bermudez. - Patient Problems (1) Acute pancreatitis Current Visit: Yes Status: Acute Subjective Date of service: 04/18/19 Interval history: Patient reports feeling little better today but continues to have epigastric pain. No nausea/vomiting. Afebrile. Objective - Constitutional Vitals: Temp Pulse Resp BP Pulse Ox 97.8 F 98 H 16 143/91 96 04/18/19 11:29 04/18/19 11:29 04/18/19 11:29 04/18/19 11:29 04/18/19 11:29 - EENT ENT: hearing intact - Neck Neck: supple - Respiratory Respiratory effort: normal Respiratory: bilateral: CTA - Cardiovascular Rhythm: regular - Extremities Extremities: pulses intact, No edema, normal color, Full ROM - Gastrointestinal General gastrointestinal: Present: soft, tender, non-distended, normal bowel sounds - Integumentary Integumentary: Present: clear, warm, dry - Neurologic Neurological: alert and oriented x3 - Labs CBC & Chem 7: 04/18/19 04:06 04/18/19 04:06 Labs: Laboratory Results - last 24 hr 04/17/19 04/18/19 04/18/19 12:47 04:06 04:06 WBC 15.9 H RBC 4.87 Hgb 14.1 Hct 42.6 MCV 88 MCH 29 MCHC 33 RDW 14.5 Plt Count 245 Lymph % (Auto) 5.9 L [place] % (Auto) 10.3 H Eos % (Auto) 0.1 Baso % (Auto) 0.3 Lymph # 0.9 L [place] # 1.6 H Eos # 0.0 Baso # 0.0 Seg Neutrophils % 83.4 H Seg Neutrophils # 13.3 H Sodium 138 Potassium 4.2 Chloride 101.1 Carbon Dioxide 27 Anion Gap 14 BUN 9 Creatinine 1.0 Estimated GFR > 60 BUN/Creatinine Ratio 9 Glucose 138 H Calcium 8.2 L Total Bilirubin 0.70 AST 60 H ALT 203 H Alkaline Phosphatase 70 Total Protein 6.6 Albumin 3.6 L Albumin/Globulin Ratio 1.2 HDL Cholesterol 59 Cholesterol/HDL Ratio 2.55 Lipase 04/18/19 04:06 WBC RBC Hgb Hct MCV MCH MCHC RDW Plt Count Lymph % (Auto) [place] % (Auto) Eos % (Auto) Baso % (Auto) Lymph # [place] # Eos # Baso # Seg Neutrophils % Seg Neutrophils # Sodium Potassium Chloride Carbon Dioxide Anion Gap BUN Creatinine Estimated GFR BUN/Creatinine Ratio Glucose Calcium Total Bilirubin AST ALT Alkaline Phosphatase Total Protein Albumin Albumin/Globulin Ratio HDL Cholesterol Cholesterol/HDL Ratio Lipase 255 H
--- NOTE | 2019-04-18 15:03 | Consultation ---
History of Present Illness Consult date: 04/18/19 Reason for consult: abdominal pain Chief complaint: gallstone pancreatitis - History of present illness History of present illness: 43 year old male with a history of presenting to the ER a little about 36 hours ago for abdominal pain that started two days before presentation. He says his pain was 10/10, currently 6/10 in the epigastric area. He last vomited yesterday and is tolerating clear liquids today. He had a CT scan and US that showed gallstones with no intraductal stone or gallbaldder wall thickening. Did see some pancreatic inflammation. He denies ever having these symptoms before. Past History Past Medical History: other (Obesity, Psoriasis) Past Surgical History: No surgical history, Other (reviewed) Social history: single. denies: smoking, alcohol abuse, prescription drug abuse Family history: no significant family history (reviewed) Medications and Allergies Allergies Allergy/AdvReac Type Severity Reaction Status Date / Time No Known Allergies Allergy Verified 04/17/19 11:45 Home Medications Medication Instructions Recorded Confirmed Last Taken Type Enbrel 50 mg IM QWEEK 04/18/19 04/18/19 04/10/19 History Active Meds: Active Medications Acetaminophen (Tylenol) 650 mg PO Q4H PRN PRN Reason: Pain MILD(1-3)/Fever >100.5/QUAN Albuterol (Proventil) 2.5 mg IH Q4HRT PRN PRN Reason: Shortness Of Breath Hydrocortisone Acetate (Hytone Cr) 1 applic TP Q12H PRN PRN Reason: Skin Irritation Hydromorphone HCl (Dilaudid) 0.25 mg IV Q3H PRN PRN Reason: Pain, Moderate (4-6) Last Admin: 04/17/19 20:07 Dose: 0.25 mg Documented by: Hydromorphone HCl (Dilaudid) 0.5 mg IV Q3H PRN PRN Reason: Pain , Severe (7-10) Last Admin: 04/18/19 12:46 Dose: 0.5 mg Documented by: Dextrose/Sodium Chloride (D5ns) 1,000 mls @ 100 mls/hr IV DIRECT PAUL Last Admin: 04/18/19 11:10 Dose: 75 mls/hr Documented by: Ondansetron HCl (Zofran) 4 mg IV Q8H PRN PRN Reason: Nausea And Vomiting Sodium Chloride (Sodium Chloride Flush Syringe 10 Ml) 10 ml IV BID PAUL Last Admin: 04/18/19 12:49 Dose: 10 ml Documented by: Sodium Chloride (Sodium Chloride Flush Syringe 10 Ml) 10 ml IV PRN PRN PRN Reason: LINE FLUSH Last Admin: 04/18/19 08:59 Dose: 10 ml Documented by: Review of Systems - Respiratory no shortness of breath - Gastrointestinal abdominal pain, nausea, vomiting Exam Vital Signs Temp Pulse Resp BP Pulse Ox 97.6 F 82 20 149/92 99 04/17/19 09:16 04/17/19 09:16 04/17/19 09:16 04/17/19 09:16 04/17/19 09:16 - General physical appearance Positive: well developed, well nourished, no distress - Respiratory Positive: normal expansion, normal respiratory effort - Extremities Extremities: no ischemia - Abdomen Abdomen: Present: soft. Absent: rebound (tender to palpation in the epigastric area), guarding, rigid, wound - Integumentary other (psorriatic plaques diffusely) Results - Labs 04/18/19 04:06 04/18/19 04:06 Abnormal lab results 04/18/19 04/18/19 04/18/19 Range/Units 04:06 04:06 04:06 WBC 15.9 H (4.5-11.0) K/mm3 Lymph % (Auto) 5.9 L (13.4-35.0) % [place] % (Auto) 10.3 H (0.0-7.3) % Lymph # 0.9 L (1.2-5.4) K/mm3 [place] # 1.6 H (0.0-0.8) K/mm3 Seg Neutrophils % 83.4 H (40.0-70.0) % Seg Neutrophils # 13.3 H (1.8-7.7) K/mm3 Glucose 138 H (75-100) mg/dL Calcium 8.2 L (8.4-10.2) mg/dL AST 60 H (5-40) units/L ALT 203 H (7-56) units/L Albumin 3.6 L (3.9-5) g/dL Lipase 255 H (13-60) units/L Diabetes panel 04/18/19 Range/Units 04:06 Sodium 138 (137-145) mmol/L Potassium 4.2 (3.6-5.0) mmol/L Chloride 101.1 (98-107) mmol/L Carbon Dioxide 27 (22-30) mmol/L BUN 9 (9-20) mg/dL Creatinine 1.0 (0.8-1.5) mg/dL Glucose 138 H (75-100) mg/dL Calcium 8.2 L (8.4-10.2) mg/dL AST 60 H (5-40) units/L ALT 203 H (7-56) units/L Alkaline Phosphatase 70 (35-129) units/L Total Protein 6.6 (6.3-8.2) g/dL Albumin 3.6 L (3.9-5) g/dL Calcium panel 04/18/19 Range/Units 04:06 Calcium 8.2 L (8.4-10.2) mg/dL Albumin 3.6 L (3.9-5) g/dL Pituitary panel 04/18/19 Range/Units 04:06 Sodium 138 (137-145) mmol/L Potassium 4.2 (3.6-5.0) mmol/L Chloride 101.1 (98-107) mmol/L Carbon Dioxide 27 (22-30) mmol/L BUN 9 (9-20) mg/dL Creatinine 1.0 (0.8-1.5) mg/dL Glucose 138 H (75-100) mg/dL Calcium 8.2 L (8.4-10.2) mg/dL Adrenal panel 04/18/19 Range/Units 04:06 Sodium 138 (137-145) mmol/L Potassium 4.2 (3.6-5.0) mmol/L Chloride 101.1 (98-107) mmol/L Carbon Dioxide 27 (22-30) mmol/L BUN 9 (9-20) mg/dL Creatinine 1.0 (0.8-1.5) mg/dL Glucose 138 H (75-100) mg/dL Calcium 8.2 L (8.4-10.2) mg/dL Total Bilirubin 0.70 (0.1-1.2) mg/dL AST 60 H (5-40) units/L ALT 203 H (7-56) units/L Alkaline Phosphatase 70 (35-129) units/L Total Protein 6.6 (6.3-8.2) g/dL Albumin 3.6 L (3.9-5) g/dL - Imaging CT scan - abdomen: report reviewed, image reviewed CT scan - pelvis: report reviewed, image reviewed US - abdomen: report reviewed Assessment and Plan gallstone pancreatitis - afebrile, stable, LFT and lipase trending down, however WBC increased overnight. Still has significant abdominal pain. will start levoquin, and recheck labs in the morning. Is scheduled for lap claudia in the morning.
[2019-04-18] MEDS ORDERED: TORADOL IV ONE (19:26)
[2019-04-18] MEDS ORDERED: NACL 0.45% 1000 ML 1,000 ML IV SCH (20:00)
[2019-04-18] MEDS ORDERED: LEVAQUIN 750MG/150ML 750 MG/150 ML BAG IV SCH (20:00)
[2019-04-18] MEDS: MERREM/NS 500 MG/50 ML 500 MG/50 ML BAG IV SCH (21:49)
[2019-04-18] MEDS: D5NS 1,000 ML IV SCH (21:50)
[2019-04-19] MEDS: DILAUDID IV PRN ×5 (00:40→16:23)
[2019-04-19] MEDS: MERREM/NS 500 MG/50 ML 500 MG/50 ML BAG IV SCH ×4 (03:09→22:49)
[2019-04-19 07:53] LABS: Basophils # (Auto) 0.1 K/mm3 (0.0-0.1); Basophils % (Auto) 0.8 % (0.0-1.8); Eosinophils % (Auto) 0.3 % (0.0-4.3); Hematocrit 39.8 % (35.5-45.6); Hemoglobin 13.1 gm/dl (11.8-15.2); Lymphocytes # (Auto) 1.6 K/mm3 (1.2-5.4); Lymphocytes % (Auto) 14.1 % (13.4-35.0); Mean Corpuscular HGB Conc 33 % (32-34); Mean Corpuscular Volume 88 fl (84-94); Monocytes # (Auto) 1.5 K/mm3 (0.0-0.8); Monocytes % (Auto) 12.9 % (0.0-7.3); Platelet Count 220 K/mm3 (140-440); Red Blood Count 4.51 M/mm3 (3.65-5.03); Red Cell Distribution Width 14.3 % (13.2-15.2)
[2019-04-19 08:13] LABS: Alanine Aminotransferase 99 units/L (7-56); Albumin 3.2 g/dL (3.9-5); BUN/Creatinine Ratio 13; Blood Urea Nitrogen 13 mg/dL (9-20); Calcium 7.9 mg/dL (8.4-10.2); Hemolysis Index 3
[2019-04-19] MEDS: D5NS 1,000 ML IV SCH ×2 (08:21→20:14)
[2019-04-19] MEDS ORDERED: DILAUDID ONE (09:15)
[2019-04-19] MEDS ORDERED: DIPRIVAN 10 MG/ML IV ONE (09:15)
[2019-04-19] MEDS ORDERED: ZEMURON IV ONE (09:38)
[2019-04-19] MEDS ORDERED: XYLOCAINE MPF 2% ONE (09:38)
--- NOTE | 2019-04-19 09:38 | Anesthesia Consultation ---
Anesthesia Consult and Med Hx Date of service: 04/19/19 - Airway Anesthetic Teeth Evaluation: Good ROM Head & Neck: Adequate Mental/Hyoid Distance: Adequate Mallampati Class: Class III Intubation Access Assessment: Possibly Difficult - Pulmonary Exam CTA: Yes - Cardiac Exam Cardiac Exam: RRR - Pre-Operative Health Status ASA Pre-Surgery Classification: ASA2 Proposed Anesthetic Plan: General - Pulmonary Hx Smoking: No Hx Respiratory Symptoms: No - Cardiovascular System Hx Hypertension: No Hx Heart Attack/AMI: No Hx Percutaneous Transluminal Coronary Angioplasty (PTCA): No - Central Nervous System CVA: No - Gastrointestinal Hx Gastroesophageal Reflux Disease: No - Endocrine Hx Renal Disease: No Hx Liver Disease: No (gallstone pancreatitis this admission with elevated LFTs) Hx Insulin Dependent Diabetes: No Hx Non-Insulin Dependent Diabetes: No Hx Thyroid Disease: No - Hematic Hx Anemia: No - Other Systems Hx Obesity: Yes - Additional Comments Anesthesia Medical History Comments: No hx anesthetic complications.
[2019-04-19] MEDS ORDERED: DECADRON ONE (09:39)
[2019-04-19] MEDS ORDERED: ZOFRAN ONE (09:39)
--- NOTE | 2019-04-19 09:39 | Anesthesia Day of Surgery ---
Anesthesia Day of Surgery - Day of Surgery Patient Examined: Yes Patient H&P Reviewed: Yes Patient is NPO: Yes
[2019-04-19] MEDS ORDERED: XYLOCAINE 1% 20 mL ONE (09:42)
[2019-04-19] MEDS ORDERED: MARCAINE 0.25% INFILTRATI ONE ×2 (09:43→09:46)
[2019-04-19] MEDS ORDERED: XYLOCAINE 1% 20 mL INFILTRATI ONE (09:46)
[2019-04-19] MEDS ORDERED: DILAUDID IV PRN (10:00)
[2019-04-19] MEDS ORDERED: ROBINUL ONE (10:55)
[2019-04-19] MEDS ORDERED: BLOXIVERZ ONE (10:55)
--- NOTE | 2019-04-19 11:42 | Operative Report ---
Operative Report Operative Report: DATE: 04/19/2019 SURGEON: MAMTA AVILA MD INBOUND IN[employer]IENT LOGISTICS SPECIALIST SURGEON: LINDSEY GOMES DO PROCEDURE: LAPAROSCOPIC CHOLECYSTECTOMY PRE-OP DX: CHOLELITHIASIS, GALLSTONE PANCREATITIS POST-OP DX: SAME ANESTHESIA: GETA COMPLICATIONS: NONE IMMEDIATE EBL: <20 ML FINDINGS: NONE UNUSUAL SPECIMEN: GALLBLADDER WITH CONTENTS INDICATION: 43 YEAR OLD MALE WHO WAS ADMITTED THROUGH THE ED WITH 2 DAYS OF ABDOMINAL PAIN. WORK UP SHOWED ACUTE PANCREATITIS, WITH CHOLECYSTITS, WITH NO OTHER OBVIOUS RISK FACTORS FOR PANCREATITIS IT WAS PRESUMED TO BE GALLSTONE PANCREATITIS. IT WAS DECIDED TO REMOVED THE GALLBLADDER THIS ADMISSION TO TRY PREVENT FUTURE ATTACKS. HE SIGNED INFORMED CONSENT AND EXPRESSED UNDERSTANDING OF THE RISKS AND BENEFITS. DETAILS OF PROCEDURE: PT WAS BROUGHT INTO OR SUITE AND LAID IN SUPINE POSITION. LOWER EXTREMITY SCD WERE PLACED. GENERAL ANESTHESIA WAS INDUCED VIA SUCCESSFUL ENDOTRACHEAL INTUBATION. HIS ABDOMEN WAS PREPPED AND DRAPED IN STERILE FASHION. A VERESS NEEDLE WAS USED TO INSUFLATE THE ABDOMEN TO A PRESSURE OF 15 MMGH IN THE LEFT UPPER QUADRANT. AFTER THIS USING OPTI-VIEW TECHNIQUE, A 5MM TROCAR WAS PLACED SUPERIOR AND JUST LEFT OF THE UMBILICUS. THERE WAS NO INJURY NOTED TO ANY INTRA-ABDOMINAL STRUCTURES. 3 WORKING TROCARS WERE PLACED UNDER DIRECT VISUALIZATION. TWO 5MM ALONG THE RIGHT SUB COSTAL MARGIN, AND A 12MM IN THE EPIGASTRIC AREA JUST RIGHT OF THE XIPHOID. THE DOME OF THE GALLBLADDER WAS APPRECIATED AND LIFTED CEPHALED OVER THE THE LIVER. THERE WAS NOTED TO BE OMENTA L FATTY ADHESIONS TO THE GALLBLADDER WHICH WERE EASILY TAKEN DOWN WITH A HARMONIC SCALPEL. THE INFUNDIBULUM WAS GRASPED AND RETRACTED INTERIORLY AND LATERALLY TO HELP IDENTIFY THE ANATOMY AND SKELETONIZE THE THE CYSTIC DUCT AND ARTERY. THE CYSTIC ARTERY WAS TRANSECTED WITH THE HARMONIC SCALPEL. AFTER THE CRITICAL VIEW WAS IDENTIFIED, THE CYSTIC DUCT WAS CLIPPED WITH 3 CLIPS PROXIMALLY AND ONE DISTALLY AND TRANSECTED WITH ENDO MAN. THE LIVER BED WAS INSPECTED AND FOUND TO BE HEMOSTATICALLY SOUND WITH NO BILIOUS DRAINAGE. THE GALLBLADDER WAS PLACED IN AN ENDO-CATCH BAG AND REMOVED VIA THE 12MM PORT SITE. THE FASCIA AT THE EPIGASTRIC PORT WAS CLOSED WITH 2 FIGURE OF EIGHT VICRYL SUTURES, ALL SKIN INCISIONS WERE CLOSED WITH MONOCRYL FOLLOWED BY DERMABOND. THE PATIENT WAS AWOKEN, EXTUBATED, AND TAKEN TO RECOVERY IN STABLE CONDITION. ALL COUNTS WERE CORRECT.
[2019-04-19] MEDS ORDERED: LACTATED RINGERS 1,000 ML ONE (11:58)
[2019-04-19] MEDS: SODIUM CHLORIDE FLUSH SYRINGE 10 ML IV SCH ×2 (13:19→22:49)
--- NOTE | 2019-04-19 13:59 | Post Anesthesia Evaluation ---
- Post Anesthesia Evaluation Patient Participated: Yes Airway Patent: Yes Stable Respiratory Function: Yes Nausea/Vomiting: No Temp > 96.8F: Yes Pain Manageable: Yes Adequeate Hydration: Yes Anesthesia Complications: No
--- NOTE | 2019-04-19 15:40 | Progress Note ---
Assessment and Plan / Acute gallstone pancreatitis cont IVF resuscitation therapy, pain control, [place] Score: 2 at admission, serial abdominal exam, No plan for MRCP per GI, GS consulted - s/p laparoscopic cholecystectomy today / SIRS (systemic inflammatory response syndrome) IVF resuscitation therapy, iv abx, supportive care, repeat bmp in am. / Intractable nausea and vomiting improved, cont anti emetic therapy, IVF resuscitation therapy / Volume depletion: IVF resuscitation therapy, monitor uop q shift, / Psoriasis Hold Enbrel for now in the light of pancreatitis. supportive care, topical steroid therapy. / Obesity (BMI 30.0-34.9) balanced diet and increased physical activity recommendation at discharge as appropriate. / DVT prophylaxis SCD to BLE while in bed, Pt is ambulatory. Subjective Date of service: 04/19/19 Interval history: Patient seen and examined abdominal pain improved s/p surgery today Objective - Exam Narrative Exam: General appearance: Present:no distress, obese - EENT Eyes: Present: PERRL, miosis ENT: hearing intact, clear oral mucosa - Neck Neck: Present: supple, normal ROM - Respiratory Respiratory effort: normal Respiratory: bilateral: CTA - Cardiovascular Heart Sounds: Present: S1 & S2. Absent: rub, click - Extremities Extremities: pulses symmetrical, No edema Peripheral Pulses: within normal limits - Abdominal General gastrointestinal: Present: soft, mild tender, non-distended, normal bowel sounds, - Integumentary Integumentary: Present: clear, warm, dry scaly patched all over body - Musculoskeletal Musculoskeletal: gait normal, strength equal bilaterally - Psychiatric Psychiatric: appropriate mood/affect, intact judgment & insight - Neurologic Neurologic: CNII-XII intact, moves all extremities - Constitutional Vitals: Vital Signs - 12hr 04/19/19 04/19/19 04/19/19 03:56 04:26 05:54 Temperature 98.4 F Pulse Rate Respiratory 17 17 24 Rate Blood Pressure 141/85 O2 Sat by Pulse Oximetry 04/19/19 04/19/19 04/19/19 06:43 11:30 11:35 Temperature 98.2 F Pulse Rate 87 85 Respiratory 18 12 16 Rate Blood Pressure 118/70 119/77 O2 Sat by Pulse 98 98 Oximetry 04/19/19 04/19/19 04/19/19 11:45 11:57 12:10 Temperature 97.7 F Pulse Rate 90 90 89 Respiratory 16 22 24 Rate Blood Pressure 126/83 144/76 124/77 O2 Sat by Pulse 98 94 92 Oximetry 04/19/19 04/19/19 12:20 12:26 Temperature 97.7 F Pulse Rate 87 Respiratory 16 Rate Blood Pressure 125/77 O2 Sat by Pulse 92 Oximetry - Labs CBC & Chem 7: 04/20/19 06:26 04/20/19 06:26 Labs: Abnormal lab results 04/19/19 04/19/19 Range/Units 07:18 07:18 WBC 11.3 H (4.5-11.0) K/mm3 [place] % (Auto) 12.9 H (0.0-7.3) % [place] # 1.5 H (0.0-0.8) K/mm3 Seg Neutrophils % 71.9 H (40.0-70.0) % Seg Neutrophils # 8.1 H (1.8-7.7) K/mm3 Glucose 158 H (75-100) mg/dL Calcium 7.9 L (8.4-10.2) mg/dL ALT 99 H (7-56) units/L Albumin 3.2 L (3.9-5) g/dL Lipase 70 H (13-60) units/L
[2019-04-19] MEDS: PERCOCET 5/325 PO PRN (19:30)
[2019-04-20] MEDS: PERCOCET 5/325 PO PRN ×3 (01:44→15:53)
[2019-04-20] MEDS: MERREM/NS 500 MG/50 ML 500 MG/50 ML BAG IV SCH ×2 (03:30→08:45)
[2019-04-20] MEDS: D5NS 1,000 ML IV SCH (03:31)
[2019-04-20 06:53] LABS: Basophils % (Auto) 0.4 % (0.0-1.8); Hematocrit 35.2 % (35.5-45.6); Hemoglobin 11.7 gm/dl (11.8-15.2); Lymphocytes # (Auto) 1.6 K/mm3 (1.2-5.4); Lymphocytes % (Auto) 17.7 % (13.4-35.0); Mean Corpuscular HGB Conc 33 % (32-34); Mean Corpuscular Volume 89 fl (84-94); Monocytes # (Auto) 1.3 K/mm3 (0.0-0.8); Monocytes % (Auto) 15.2 % (0.0-7.3); Platelet Count 203 K/mm3 (140-440); Red Blood Count 3.96 M/mm3 (3.65-5.03); Red Cell Distribution Width 14.7 % (13.2-15.2)
[2019-04-20 07:30] LABS: Alanine Aminotransferase 117 units/L (7-56); Albumin 3.1 g/dL (3.9-5); BUN/Creatinine Ratio 11; Blood Urea Nitrogen 13 mg/dL (9-20); Calcium 7.7 mg/dL (8.4-10.2); Hemolysis Index 2
--- NOTE | 2019-04-20 08:03 | Progress Note ---
Assessment and Plan gallstone panreatitis. POD#1 s/p lap claudia. afebrile, stable, wbc normalized, lipase almost normalized. OK to discharge today from gen surg perspective. can follow up with me in 2 weeks. please have patient call [phone] to set up appointment. can advance diet as tolerated. Subjective Date of service: 04/20/19 Patient Reports: Positive: no new complaints, feels better, pain is less, tolerating liquids well (no acute events after lap claudia) Objective Vital Signs - 12hr 04/19/19 04/20/19 22:26 05:52 Temperature 98.9 F 98.9 F Pulse Rate 101 H Respiratory 24 20 Rate Blood Pressure 121/80 136/88 O2 Sat by Pulse 91 Oximetry - General physical appearance well developed, well nourished, no distress - Respiratory normal expansion, normal respiratory effort - Abdomen soft, not guarding, not rigid, not wound, other (apprpriate tender to palpation at surgical sites, especially where the gall bladder was retrieved. incisions c/d/i) - Labs 04/20/19 06:26 04/20/19 06:26 Diabetes panel 04/19/19 04/20/19 Range/Units 07:18 06:26 Sodium 141 142 (137-145) mmol/L Potassium 3.9 3.8 (3.6-5.0) mmol/L Chloride 104.8 107.0 (98-107) mmol/L Carbon Dioxide 24 29 (22-30) mmol/L BUN 13 13 (9-20) mg/dL Creatinine 1.0 1.2 (0.8-1.5) mg/dL Glucose 158 H 113 H (75-100) mg/dL Calcium 7.9 L 7.7 L (8.4-10.2) mg/dL AST 18 46 H (5-40) units/L ALT 99 H 117 H (7-56) units/L Alkaline Phosphatase 58 62 (35-129) units/L Total Protein 6.7 6.2 L (6.3-8.2) g/dL Albumin 3.2 L 3.1 L (3.9-5) g/dL Calcium panel 04/19/19 04/20/19 Range/Units 07:18 06:26 Calcium 7.9 L 7.7 L (8.4-10.2) mg/dL Albumin 3.2 L 3.1 L (3.9-5) g/dL Pituitary panel 04/19/19 04/20/19 Range/Units 07:18 06:26 Sodium 141 142 (137-145) mmol/L Potassium 3.9 3.8 (3.6-5.0) mmol/L Chloride 104.8 107.0 (98-107) mmol/L Carbon Dioxide 24 29 (22-30) mmol/L BUN 13 13 (9-20) mg/dL Creatinine 1.0 1.2 (0.8-1.5) mg/dL Glucose 158 H 113 H (75-100) mg/dL Calcium 7.9 L 7.7 L (8.4-10.2) mg/dL Adrenal panel 04/19/19 04/20/19 Range/Units 07:18 06:26 Sodium 141 142 (137-145) mmol/L Potassium 3.9 3.8 (3.6-5.0) mmol/L Chloride 104.8 107.0 (98-107) mmol/L Carbon Dioxide 24 29 (22-30) mmol/L BUN 13 13 (9-20) mg/dL Creatinine 1.0 1.2 (0.8-1.5) mg/dL Glucose 158 H 113 H (75-100) mg/dL Calcium 7.9 L 7.7 L (8.4-10.2) mg/dL Total Bilirubin 0.50 0.40 (0.1-1.2) mg/dL AST 18 46 H (5-40) units/L ALT 99 H 117 H (7-56) units/L Alkaline Phosphatase 58 62 (35-129) units/L Total Protein 6.7 6.2 L (6.3-8.2) g/dL Albumin 3.2 L 3.1 L (3.9-5) g/dL
--- NOTE | 2019-04-20 11:21 | Discharge Summary ---
Providers - Providers Date of Admission: 04/17/19 11:41 Date of discharge: 04/20/19 Attending physician: JENNIFER PATINO Primary care physician: CE KUHN Hospitalization Condition: Good Hospital course: 43 year old male with a history of presenting to the ER for abdominal pain that started two days before presentation. He had a CT scan and US that showed gallstones with no intraductal stone or gallbaldder wall thickening, and some pancreatic inflammation. GI was consulted and didnot recommended MRCP. Consulted GS and had laparoscopic cholecystectomy on 04/19/19, LFT trended down, was tolerating full liquid diet. He was discharged home in stable condition with outpt f/u. Discharge diagnosis and management: / Acute gallstone pancreatitis Managed with IVF resuscitation therapy, pain control, [place] Score: was 2 at admission, serial abdominal exam, No need for MRCP per GI, GS consulted - s/p laparoscopic cholecystectomy on will do outpt pt f/u with GS in two weeks / SIRS (systemic inflammatory response syndrome) due to Acute gallstone pancreatitis Managed with IVF resuscitation therapy, iv abx, supportive care, blood cx negative / Intractable nausea and vomiting improved with cont anti emetic therapy, IVF resuscitation therapy / Volume depletion: repleted with IVF resuscitation therapy, / Psoriasis supportive care, topical steroid therapy. Outpt f/u / Obesity (BMI 30.0-34.9) balanced diet and increased physical activity recommendation at discharge as appropriate. /hypoalbuminemia, due to NPO status and poor oral intake / DVT prophylaxis SCD to BLE while in bed, Pt is ambulatory. Disposition: TO HOME OR SELFCARE Time spent for discharge: 34 minutes Core Measure Documentation - Palliative Care Palliative Care/ Comfort Measures: Not Applicable - Core Measures Any of the following diagnoses?: none Exam - Physical Exam Narrative exam: General appearance: Present:no distress, obese - EENT Eyes: Present: PERRL, miosis ENT: hearing intact, clear oral mucosa - Neck Neck: Present: supple, normal ROM - Respiratory Respiratory effort: normal Respiratory: bilateral: CTA - Cardiovascular Heart Sounds: Present: S1 & S2. Absent: rub, click - Extremities Extremities: pulses symmetrical, No edema Peripheral Pulses: within normal limits - Abdominal General gastrointestinal: Present: soft, mild tender, non-distended, normal bowel sounds, - Integumentary Integumentary: Present: clear, warm, dry scaly patched all over body - Musculoskeletal Musculoskeletal: gait normal, strength equal bilaterally - Psychiatric Psychiatric: appropriate mood/affect, intact judgment & insight - Neurologic Neurologic: CNII-XII intact, moves all extremities - Constitutional Vitals: Temp Pulse Resp BP Pulse Ox 98.9 F 101 H 20 136/88 91 04/20/19 05:52 04/19/19 22:26 04/20/19 05:52 04/20/19 05:52 04/19/19 22:26 Plan Activity: advance as tolerated Weight Bearing Status: Weight Bear as Tolerated Diet: advance as tolerated Wound: keep clean and dry Follow up with: CE KUHN MD [Primary Care Provider] - 7 Days MAMTA AVILA MD [Staff Physician] - 7 Days Prescriptions: oxyCODONE /ACETAMINOPHEN [Percocet 5/325] 1 tab PO Q4HR 10 Days #20 tab
[2019-04-20 19:21] VITALS: BP 127/86
== END 2019-04-20 19:37 | disposition home or self-care (01) | DRG 418 ==
LOC: ED 09:13 → 3A 11:41
PROVIDERS: ADMIT Internal Medicine; ATTEND Internal Medicine
PROC: 0FT44ZZ Resection of Gallbladder, Percutaneous Endoscopic Approach (ICD-10-PCS; principal; 2019-04-19)
DX: K85.10 Biliary acute pancreatitis without necrosis or infection (principal); R65.10 Systemic inflammatory response syndrome (SIRS) of non-infectious origin without acute organ dysfunction; L40.9 Psoriasis, unspecified; K81.9 Cholecystitis, unspecified; E66.9 Obesity, unspecified; Z68.34 Body mass index [BMI] 34.0-34.9, adult; K66.0 Peritoneal adhesions (postprocedural) (postinfection); E86.9 Volume depletion, unspecified; E88.09 Other disorders of plasma-protein metabolism, not elsewhere classified
CPT/HCPCS: 36415; 74178; 76705; 80053; 80061; 80307; 81001; 82140; 82550; 83615; 83690; 83735; 85025; 88304; 93005; 93010; G0378; A6250; J1100; J1170; J1885; J2185; J2270; J2405; J2704; J2710; J7030; J7042; J7120; Q9967